=== PATIENT | male | born 2000 | race Caucasian/White ===

== ENCOUNTER 2024-02-10 15:36 | Emergency (ER) | payer BC, SELFPAY ==
[2024-02-10 15:42] VITALS: BP 101/60; PULSE 81; RESP 17; TEMP 36.8; O2SAT 97; BMI 33.5
--- NOTE | 2024-02-10 17:26 | XRR_ITS ---
PROCEDURE INFORMATION: Exam: XR Lumbosacral Spine Exam date and time: 02/10/2024 5:47 PM Age: 23 years old Clinical indication: Lumbago; Patient HX: Lower back/pelvic/lt hip/lower ext pain post fall from horse TECHNIQUE: Imaging protocol: Radiologic exam of the lumbosacral spine. Views: 2 or 3 views. COMPARISON: No relevant prior studies available. FINDINGS: Bones/joints: Normal. No acute fracture. Normal alignment. Soft tissues: Unremarkable. XR/XR lumbar spine 2-3V* [id number] IMPRESSION: No acute findings.
--- NOTE | 2024-02-10 17:26 | ED_ITS ---
Documented by User: BAL Ashby 02/10/24 19:38 HPI - Extremity Problem General: Chief complaint: Extremity Injury, Lower Stated complaint: left leg hurt Time Seen by Provider: 02/10/24 17:26 History of Present Illness: 23-year-old male patient comes in for in jury secondary to fall from horse. Patient appears nontoxic. Patient appears no acute distress. Respirations are even. Patient reports pain to the coccyx and left leg. Related Data Previous Rx's Medication Instructions Recorded ketorolac 10 mg tablet 10 mg PO Q6H PRN pain #12 tabs 02/10/24 Allergies Allergy/AdvReac Type Severity Reaction Status Date / Time No Known Allergies Allergy Verified 02/10/24 15:45 Review of Systems General: Reports: 10 or more systems reviewed and unremarkable except in HPI and below Physical Exam Const: COMMON NORMALS: alert HENMT: COMMON NORMALS: normocephalic HEAD & SCALP: normocephalic Neck/C-Spine: COMMON NORMALS: full ROM Resp: COMMON NORMALS: normal respiratory effort Cardio: COMMON NORMALS: regular rate RATE: regular rate Back/Pelvis: COMMON NORMALS: thoracic and lumbar spine normal to inspection COCCYX: Coccyx tenderness present Extremity: COMMON NORMALS: normal to inspection NARRATIVE EXTREMITY EXAM: Decreased range of motion of the left hip due to pain. Patient is able to lift leg off the bed. LEFT LOWER EXTREMITY: Yes hip joint and Yes upper leg Neuro: SENSORIUM/ORIENTATION: Yes alert Skin: COMMON NORMALS: turgor normal GENERAL SKIN EXAM: turgor normal Course Vital Signs: Vital signs: Vital Signs Temperature 98.2 F 02/10/24 15:42 Pulse Rate 72 02/10/24 20:12 Respiratory Rate 16 02/10/24 20:12 Blood Pressure 121/72 02/10/24 20:12 Pulse Oximetry 97 02/10/24 20:12 Oxygen Delivery Me thod Room Air 02/10/24 15:42 MDM - Extremity (Nontraumatic) Medical Decision Making 23-year-old male patient comes in today for complaints of injury secondary to a thrown from a horse. On exam patient appears nontoxic. Patient appears no acute distress. Respirations are even lungs are clear to auscultation. Skin is warm and dry. Patient does have decreased range of motion of left hip due to pain. Patient has tenderness of the coccyx. Differential diagnosis includes fracture, dislocation, contusion. X-ray noted a pubis and ischium fractures on the left side of the pelvis. No significant displacement is noted. Reviewed x- ray with Dr. Brown who agreed with plan for crutches and follow-up with orthopedic surgeon. Believe no surgical option are available at this time. Patient was notified of exam and recommendations for treatment. Patient reported understanding. Lab Data Radiology Impressions Lumbar Spine X-Ray 02/10/24 17:26 IMPRESSION: No acute findings. Femur X-Ray 02/10/24 17:27 IMPRESSION: No acute findings. Tibia/Fibula X-Ray 02/10/24 17:27 IMPRESSION: No acute findings. Pelvis X-Ray 02/10/24 17:33 IMPRESSION: Fracture through the left inferior pubic ramus. XR interpretation done by ED provider, pending radiology final review Discharge Plan Discharge Patient Disposition: Home Clinical Impression: Closed pelvic fracture Qualifiers: Encounter type: initial encounter Pelvic bone location: multiple parts Fracture alignment: without disruption of pelvic ring Qualified Code(s): S32.82XA - Multiple fractures of pelvis without disruption of pelvic ring, initial encounter for closed fracture Condition: Stable Prescriptions: New ketorolac 10 mg tablet 10 mg PO Q6H PRN (Reason: pain) Qty: 12 0RF Discharge Orders: Discharge ED (Routine); Ordered 02/10/24 Ordered By: Geronimo Dotson Discharge Diet: Usual diet Discharge Activity: Increase activity as tolerated Patient Instructions: Pelvic Fracture (ED) Activity Restrictions/Additional Instructions: Home and rest. Drink plenty of water and fluids. Avoid constipation. Use ac etaminophen along with ketorolac for pain. Follow-up with primary care for further instructions. Case management will contact you regarding follow-up with orthopedist. Coding Level of Care Code ED Background Investigator for [facility] Documented by User: Reggie Brown, 02/10/24 22:41 HPI - Extremity Problem General: Chief complaint: Extremity Injury, Lower Stated complaint: left leg hurt Time Seen by Provider: 02/10/24 17:26 Related Data Previous Rx's Medication Instructions Recorded ketorolac 10 mg tablet 10 mg PO Q6H PRN pain #12 tabs 02/10/24 Allergies Allergy/AdvReac Type Severity Reaction Status Date / Time No Known Allergies Allergy Verified 02/10/24 15:45 Course Vital Signs: Vital signs: Vital Signs Temperature 98.2 F 02/10/24 15:42 Pulse Rate 72 02/10/24 20:12 Respiratory Rate 16 02/10/24 20:12 Blood Pressure 121/72 02/10/24 20:12 Pulse Oximetry 97 02/10/24 20:12 Oxygen Delivery Me thod Room Air 02/10/24 15:42 MDM - Extremity (Nontraumatic) Medical Decision Making 23-year-old male patient comes in today for complaints of injury secondary to a thrown from a horse. On exam patient appears nontoxic. Patient appears no acute distress. Respirations are even lungs are clear to auscultation. Skin is warm and dry. Patient does have decreased range of motion of left hip due to pain. Patient has tenderness of the coccyx. Differential diagnosis includes fracture, dislocation, contusion. X-ray noted a pubis and ischium fractures on the left side of the pelvis. No significant displacement is noted. Reviewed x- ray with Dr. Brown who agreed with plan for crutches and follow-up with orthopedic surgeon. Believe no surgical option are available at this time. Patient was notified of exam and recommendations for treatment. Patient reported understanding. This patient was originally seen by BAL Tobar.? I agree with his history, evaluation, and treatment. Lab Data Radiology Impressions Lumbar Spine X-Ray 02/10/24 17:26 IMPRESSION: No acute findings. Femur X-Ray 02/10/24 17:27 IMPRESSION: No acute findings. Tibia/Fibula X-Ray 02/10/24 17:27 IMPRESSION: No acute findings. Pelvis X-Ray 02/10/24 17:33 IMPRESSION: Fracture through the left inferior pubic ramus. Discharge Plan Discharge Patient Disposition: Home Clinical Impression: Closed pelvic fracture Qualifiers: Encounter type: initial encounter Pelvic bone location: multiple parts Fracture alignment: without disruption of pelvic ring Qualified Code(s): S32.82XA - Multiple fractures of pelvis without disruption of pelvic ring, initial encounter for closed fracture Condition: Stable Prescriptions: New ketorolac 10 mg tablet 10 mg PO Q6H PRN (Reason: pain) Qty: 12 0RF Discharge Orders: Discharge ED (Routine); Ordered 02/10/24 Ordered By: Geronimo Dotson Discharge Diet: Usual diet Discharge Activity: Increase activity as tolerated Patient Instructions: Pelvic Fracture (ED) Activity Restrictions/Additional Instructions: Home and rest. Drink plenty of water and fluids. Avoid constipation. Use acetaminophen along with ketorolac for pain. Follow-up with primary care for further instructions. Case management will contact you regarding follow-up with orthopedist. Coding Level of Care Code ED Background Investigator for Benji Barrios
--- NOTE | 2024-02-10 17:27 | XRR_ITS ---
PROCEDURE INFORMATION: Exam: XR Left Tibia and Fibula Exam date and time: 02/10/2024 5:47 PM Age: 23 years old Clinical indication: Lower leg; Left; Patient HX: Lower back/pelvic/lt hip/lower ext pain post fall from horse TECHNIQUE: Imaging protocol: Radiologic exam of the left tibia and fibula. Views: 2 views. COMPARISON: No relevant prior studies available. FINDINGS: Bones/joints: Normal. Soft tissues: Normal. XR/XR tibia fibula LT 2V [id number] IMPRESSION: No acute findings.
--- NOTE | 2024-02-10 17:27 | XRR_ITS ---
PROCEDURE INFORMATION: Exam: XR Left Femur Exam date and time: 02/10/2024 5:47 PM Age: 23 years old Clinical indication: Lower leg; Left; Patient HX: Lower back/pelvic/lt hip/lower ext pain post fall from horse TECHNIQUE: Imaging protocol: Radiologic exam of the left femur. Views: 2 views. COMPARISON: CR XR pelvis 1-2V* [id number] 02/10/2024 5:47 PM FINDINGS: Bones/joints: Unremarkable. No acute fracture. Soft tissues: Unremarkable. XR/XR femur LT min 2V* [id number] IMPRESSION: No acute findings.
--- NOTE | 2024-02-10 17:33 | XRR_ITS ---
PROCEDURE INFORMATION: Exam: XR Pelvis Exam date and time: 02/10/2024 5:47 PM Age: 23 years old Clinical indication: Hip pain; Left hip; Additional info: Lower back/pelvic/lt hip/lower ext pain post fall from horse TECHNIQUE: Imaging protocol: Radiologic exam of the pelvis. Views: 1 or 2 view. COMPARISON: CR XR lumbar spine 2-3V* [id number] 02/10/2024 5:47 PM FINDINGS: Bones/joints: Fracture through the left inferior pubic ramus. Left hip is intact. Soft tissues: Unremarkable. XR/XR pelvis 1-2V* [id number] IMPRESSION: Fracture through the left inferior pubic ramus.
[2024-02-10] MEDS: ketorolac 30 mg/mL INJ IM (17:43)
[2024-02-10 17:55] VITALS: PULSE 87; RESP 18; O2SAT 98
[2024-02-10 20:12] VITALS: BP 121/72; PULSE 72; RESP 16; O2SAT 97
--- NOTE | 2024-02-11 08:29 | DCPLANNER ---
messaged ortho for er f/u
== END 2024-02-10 19:56 | disposition home or self-care (01) ==
PROVIDERS: Emergency Provider Nurse Practitioner Family
DX: S32.82XA Multiple fractures of pelvis without disruption of pelvic ring, initial encounter for closed fracture (principal); V80.010A Animal-rider injured by fall from or being thrown from horse in noncollision accident, initial encounter
CPT/HCPCS: 72100; 72170; 73552; 73590; 96372; 99284; E0114; J1885

== ENCOUNTER → 2024-11-25 13:44 | Outpatient (BNVA) | payer OTHER, SELFPAY | PROVIDERS: PCP Nurse Practitioner Family; Visit Provider Nurse Practitioner Family | DX: R10.811 Right upper quadrant abdominal tenderness (principal) | CPT/HCPCS: 80053; 85025 ==

== ENCOUNTER 2024-12-05 10:03 | Outpatient (CLI) | payer OTHER, SELFPAY ==
--- NOTE | 2024-12-05 10:15 | US_ITS ---
WS: [id number] RIGHT UPPER QUADRANT ULTRASOUND HISTORY: R10.811 - Right upper quadrant abdominal tenderness COMPARISON: None available. Liver: 17.1 cm in length. Normal size liver and echogenicity. No bile duct dilatation or mass. Portal Vein: Normal hepatopetal flow with monophasic waveform. Gallbladder: Normally distended gallbladder with no stones or wall thickening. CBD: 0.3 cm Pancreas: Portions of the head and tail are obscured. The body is negative. Right kidney: 11.3 cm in length. Normal size and echogenicity. No hydronephrosis or mass. Aorta and IVC: Unremarkable abdominal aorta and IVC. No ascites. US/US gall bladder [id number] IMPRESSION: Normal right upper quadrant ultrasound.
== END 2024-12-05 10:04 | disposition home or self-care (01) ==
LOC: RAD 10:05
PROVIDERS: PCP Nurse Practitioner Family; Visit Provider Nurse Practitioner Family
DX: R10.811 Right upper quadrant abdominal tenderness (principal)
CPT/HCPCS: 76705